=== PATIENT | male | born 1945 | race Caucasian/White ===

== ENCOUNTER → 2024-10-03 12:18 | Outpatient (REF) | payer MEDICARE, OTHER, SELFPAY ==
[2024-10-03 13:57] LABS: ALT (SGPT) 37 U/L (0-50); AST (SGOT) 29 U/L (17-59); Albumin 4.1 g/dl (3.5-5.0); Alkaline Phosphatase 68 U/L (38-126); Blood Urea Nitrogen 10 mg/dl (9-20); Calcium 10.9 mg/dl (8.4-10.2); Carbon Dioxide 26 mmol/L (22-30); Chloride 105 mmol/L (98-107); Glucose 100 mg/dl (70-99); HDL Cholesterol 58 mg/dl; Lithium 0.8 mmol/L (0.6-1.2); Potassium 4.9 mmol/L (3.5-5.1); Sodium 140 mmol/L (135-145); Total Bilirubin 1.1 mg/dl (0.2-1.3); Total Cholesterol 174 mg/dl (50-199); Total Protein 7.3 g/dl (6.3-8.2); eGFR > 60.00
[2024-10-03 14:00] LABS: LDL Cholesterol, Calculated 105 mg/dl; Triglyceride 58 mg/dl (10-149); Very Low Density Lipoprotein 11 mg/dl (0-30)
[2024-10-03 14:08] LABS: Glycohemoglobin (HgbA1c) 4.9 % (4.0-5.6)
[2024-10-03 14:28] LABS: TSH Reflex To Free T4 1.45 uIU/ml (0.47-4.68)
== END ==
LOC: REG 12:18
PROVIDERS: ATTENDING PHYSICIAN Psychiatry & Neurology Psychiatry; FAMILY PHYSICIAN Family Medicine
DX: Z79.899 Other long term (current) drug therapy (principal); Z51.81 Encounter for therapeutic drug level monitoring
CPT/HCPCS: 36415; 80053; 80061; 80178; 83036; 84443

== ENCOUNTER 2025-05-15 15:40 | Emergency (ER) | payer MEDICARE, SELFPAY ==
[2025-05-15 15:51] VITALS: BP 108/76
--- NOTE | 2025-05-15 16:46 | ED.GENMED ---
History of Present Illness
<Vicki Leblanc MD, Resident - Last Filed: 05/15/25 19:49>
General
Chief Complaint: Back Pain
Time Seen by Provider: 05/15/25 16:30
History of Present Illness
History of Present Illness:
Patient is a 80-year-old male, with past medical history significant for essential hypertension, BPH, bipolar disorder, history of spinal surgery in 2017 laminectomy L3-4-5 with spinal fusion, who is here for evaluation of back pain.
It started 3 days ago, he was in his bed for a long time and then when he tried to move he felt a stabbing pain at the level of the tailbone that was radiating down the right leg, he reports that the pain was so intense that he felt like blowing his
head out. He reports the pain in the same region as he had the surgery, and it is worse with extending the back and he feels a little bit better on flexing forward. He was able to get out of the bed somehow and then he moved for a while and that
helped to decrease the intensity of pain. He denies any numbness, paresthesias, tingling of pelvic region, he is passing stool and urine without issues, denies any fever or chills.
He waited for 3 days for the pain to get better but the pain has been bothering him and his daily activities that is why he came to the ER for further evaluation.
<Gigi Walls MD - Last Filed: 05/15/25 19:19>
General
Source: patient
Exam Limitations: none
Nursing documentation reviewed up to this point in time: agreed with
Past History
<Vicki Leblanc MD, Resident - Last Filed: 05/15/25 19:49>
Past History
ED Past Medical History: HTN and Psychiatric
ED Past Surgical History: Orthopedic
Social History
Tobacco: Non-smoker
Alcohol: Chronic alcoholic
Drug: None
Personal:
Living: alone
Review of Systems
<Vicki Leblanc MD, Resident - Last Filed: 05/15/25 19:49>
Review of Systems
All Other Systems: ROS reviewed and negative except as documented in HPI and ROS
Phy Exam
<Vicki Leblanc MD, Resident - Last Filed: 05/15/25 19:49>
General Physical Exam
General Presentation: well appearing and no apparent distress
Cardiovascular Exam
Cardiovascular Exam: regular rate/rhythm, no edema, no gallop, no murmur and normal peripheral pulses
Pulmonary Exam
Pulmonary Exam: lungs clear and no respiratory distress
Gastrointestinal Exam
Gastrointestinal Exam: normal bowel sounds, non tender and soft
Neurological Exam
Neurological Exam: alert, oriented x3, no motor deficits, no sensory deficits and normal gait
Musculoskeletal Exam
Musculoskeletal Exam: back pain and other (No back tenderness)
Skin Exam
Skin Exam: normal color and warm/dry
Course
<Vicki Leblanc MD, Resident - Last Filed: 05/15/25 19:49>
Orders/Labs/Results
Orders:
Orders
05/15/25 17:09
Lumbar Spine Complete, 4 View [CR Lumbar Spine Comp Min 4 Vw*] Urgent
Comment:
Reason For Exam: lower back pain
05/15/25 17:10
Acetaminophen [Tylenol] 1,000 mg PO NOW ONE
05/15/25 17:11
Dexamethasone Sod Phosphate [Decadron] 10 mg IV NOW ONE
05/15/25 17:26
Dexamethasone Pf [Decadron] 10 mg PO NOW STA
Vital Signs
Initial and Last Documented VS:
Initial Vital Signs
Temp Pulse Resp BP Pulse Ox
98.5 F 61 18 108/76 98
05/15/25 15:51 05/15/25 15:51 05/15/25 15:51 05/15/25 15:51 05/15/25 15:51
Last Documented Vital Signs
Temp Pulse Resp BP Pulse Ox
98.5 F 61 18 108/76 98
05/15/25 15:51 05/15/25 15:51 05/15/25 15:51 05/15/25 15:51 05/15/25 16:47
<Gigi Walls MD - Last Filed: 05/15/25 19:19>
Orders/Labs/Results
Orders:
Orders
05/15/25 17:09
Lumbar Spine Complete, 4 View [CR Lumbar Spine Comp Min 4 Vw*] Urgent
Comment:
Reason For Exam: lower back pain
05/15/25 17:10
Acetaminophen [Tylenol] 1,000 mg PO NOW ONE
05/15/25 17:11
Dexamethasone Sod Phosphate [Decadron] 10 mg IV NOW ONE
05/15/25 17:26
Dexamethasone Pf [Decadron] 10 mg PO NOW STA
Vital Signs
Initial and Last Documented VS:
Initial Vital Signs
Temp Pulse Resp BP Pulse Ox
98.5 F 61 18 108/76 98
05/15/25 15:51 05/15/25 15:51 05/15/25 15:51 05/15/25 15:51 05/15/25 15:51
Last Documented Vital Signs
Temp Pulse Resp BP Pulse Ox
98.5 F 61 18 108/76 98
05/15/25 15:51 05/15/25 15:51 05/15/25 15:51 05/15/25 15:51 05/15/25 16:47
<Vicki Leblanc MD, Resident - Last Filed: 05/15/25 19:49>
MDM/Problems Addressed
Differential Diagnosis Includes:
Cauda equina syndrome
Epidural abcess
Lumbar disc herniation with radiculopathy
vertebral compression fracture
Nephrolithiasis
lumbar spinal stenosis
MDM/Problems Addressed:
Patient does not have any urinary retention, bladder or bowel incontinence, any paresthesias-cauda equina syndrome less likely
Denies any fever, chills, no spinal tenderness-less likely epidural abscess
X-ray lumbar spine done-progressive degenerative changes, no evidence of vertebral compression fracture-plan to encourage activity as tolerated, use pain medications [id number], follow-up with primary care physician
Reassurance, discharged with follow-up with primary care physician
<Vicki Leblanc MD, Resident - Last Filed: 05/15/25 19:49>
*Pulse Oximetry
SaO2: 98
Oxygen Mode of Delivery: Room air
Patient hypoxic: no
*Critical Care Note
Total Time (30-74mins, 75-104mins- exclusive of procedures): Not Applicable
ED Attending Note
<Vicki Leblanc MD, Resident - Last Filed: 05/15/25 19:49>
-
Portions of this chart may have been created with voice recognition software.� Occasional wrong word or��sound alike� substitutions may have occurred due to the inherent limitations of voice recognition software.
<Gigi Walls MD - Last Filed: 05/15/25 19:19>
ED Attending Note
Patient seen and examined by attending physician: Yes
ED Attending Note:
Patient with history of lower back laminectomy surgery in 2017, presents to ED secondary to 3-day history of right upper buttock pain, which began when he woke up in the morning and tried to get out of bed. Since then, patient has been experiencing
similar symptoms, especially in the morning, with intermittent radiation down the back of his right lower leg. However, when he is standing up and ambulating, patient is reporting minimal discomfort. Denies fever or chills. Denies direct trauma.
Denies recent change in activities. Denies urinary or bowel incontinence. Denies leg weakness or numbness.
Physical Exam
General: no apparent distress, not acutely ill. afebrile
Head: nc/at. eomi
Neck: supple. normal range of motion.
Abdomen: normal bowel sounds. not tender.
Back: no midline tenderness. mild right upper buttock tenderness to palpation. negative straight leg raise
Neuro: alert and oriented x 3. no focal neurological deficits
Skin: no rash
Psychiatric: well kept. interactive and cooperative
Extremities: no edema. no calf tenderness. normal range of motion
History and exam consistent with likely pain secondary to sciatica as pain brought on with certain movement. Fortunately, patient is afebrile, hemodynamically stable, and without any neurological deficit during exam. Patient has been able to
ambulate once he is able to stand up. As such, patient will be treated conservatively, with use of Tylenol/Motrin, along with warm compress application. Patient advised to call PCP in the morning for outpatient evaluation, including potential MRI
spine as an outpatient, if symptoms persist, as well as potential consultation with orthopedic surgery for reevaluation. Patient expressed understanding, discharge, to the care of his daughter, who will be observing him closely at home. Patient
does not have any symptoms consistent with infection nor cauda equina syndrome at this time.
Discharge Plan
Departure
Patient Disposition: Home (Routine Discharge)
Date of Disposition: 05/15/25
Time of Disposition: 18:53
Patient with high blood pressure during this ER visit?: No
Discharge Problem:
Back pain
Instructions: Low Back Pain (DC), Radiculopathy (DC)
Prescriptions:
No Action
lithium carbonate 300 MG capsule
300 mg PO BID
cyanocobalamin (vitamin B-12) 1,000 MCG capsule
1,000 mcg PO DAILY
Aspirin
325 mg PO DAILY
acetaminophen 325 MG tablet
650 mg PO Q4HPRN PRN (Reason: mild pain) Qty: 1 0RF
ibuprofen 200 MG tablet
400 - 600 mg PO Q6HPRN PRN (Reason: moderate pain) Qty: 1 0RF
Referrals:
Jomar Vega MD [Family Provider, [facility]]
Activity Restrictions/Additional Instructions:
CONTINUE ACTIVITY ABLE
REACH OUT TO PCP AND DISCUSS PHYSICAL THERAPY AND POSSIBLE REFER TO YOUR SURGEON WHO DID BACK SURGERY IN 2017
USE PAIN MEDICATIONS OTC
CONTINUE CONSERVATIVE MEASURES LIKE HEAT/ICE PACKS,MASSAGE AND GENTLE EXERCISES
PLEASE RETURN TO ER IN CASE OF PERSISTENT,SEVERE OR WORRISOME SYMPTOMS LIKE URINARY RETENTION,BLADDER/BOWEL INCONTINENCE,FEVER AND CHILLS
Interventions
Interventions:
*Risk Screen - Suicide Last Done: 05/15/25 15:51
*General Assessment Last Done: 05/15/25 18:52
*Neglect/Abuse Screening Last Done: 05/15/25 18:52
*Nursing Disposition Last Done: 05/15/25 19:20
ED-Musculoskeletal Assessment Last Done: 05/15/25 17:25
Discharge Date and Time
Discharge Date/Time: 05/15/25 19:21
Print Language: OMANI
[2025-05-15] MEDS: TYLENOL 1000 MG PO (17:24)
[2025-05-15] MEDS: DECADRON 10 MG PO (17:29)
== END 2025-05-15 19:21 | disposition home or self-care (01) ==
LOC: EMR 15:40
PROVIDERS: EMERGENCY PHYSICIAN Emergency Medicine; FAMILY PHYSICIAN Family Medicine
DX: M54.50 Low back pain, unspecified (principal); M47.816 Spondylosis without myelopathy or radiculopathy, lumbar region; I10 Essential (primary) hypertension; F31.9 Bipolar disorder, unspecified; N40.0 Benign prostatic hyperplasia without lower urinary tract symptoms; F10.20 Alcohol dependence, uncomplicated; Z98.1 Arthrodesis status
CPT/HCPCS: 99283; 72110